=== PATIENT | male | born 1930 | race Caucasian/White ===

== ENCOUNTER 2017-09-07 18:15 | Inpatient (IN) | payer OTHER, MEDICARE ==
[~2017-09-07] VITALS: Ht 167.6 cm; Wt 82.9 kg
[2017-09-07 18:31] VITALS: BP 113/77; PULSE 114; RESP 18; TEMP 98.3; O2SAT 96
[2017-09-07] MEDS ORDERED: SODIUM CHLORIDE 0.9% FLUSH 10 ML FLUSH IVF PRN (18:45)
[2017-09-07] MEDS ORDERED: SODIUM CHLORID 0.9% 500 ML INJ 500 ML IV ONE (18:45)
[2017-09-07] MEDS ORDERED: DILTIAZEM HCL 25 MG/5 ML VIAL IV ONE (18:45)
[2017-09-07] MEDS ORDERED: ASPIRIN 81 MG CHEW TAB PO ONE (18:45)
--- NOTE | 2017-09-07 18:49 | PD ---
HPI Chief Complaint: Cardiac Complaint Time Seen by Provider: 18:36 Travel History International Travel<30 days: No Contact w/Intl Traveler<30days: No Traveled to known affect area: No History of Present Illness HPI 86-year-old male with history of atrial fibrillation on Coumadin,angina, [place], HTN , Cardiomyopathy, presents emergency department from his primary care physician' s office for a rapid heart rate that was found on EKG today. Patient says that he had an episode of angina this morning where he took 4 nitro tablets and this resolved his pain. Patient states his pain was located in the epigastric region and felt "shaky". Pain did not radiate, denies nausea or vomiting. Had associated shortness of breath, worsened with ambulation. Currently patient denies chest pain, abdominal pain, back pain. States he is short of breath but believes this is secondary to his chronic COPD. According to [facility] initial heart rate was in the 180s-190s in the administered 20 mg Cardizem without improvement in heart rate. They then administered amiodarone 150 mg with a heart rate slowed to approximately 110-120 bpm. His stars coordinator is Dr. Rivera and his last follow-up several months ago. PFSH Past Medical History Atrial Fibrillation: Yes COPD: Yes Diabetes: No Hypertension: Yes Triglycerides - High: Yes ?: Not Social History Alcohol Use: No Tobacco Use: Yes (on occasion) Substance Use: No Allergies-Medications (Allergen,Severity, Reaction): Coded Allergies: No Known Allergies (Unverified , 09/07/17) Reported Meds & Prescriptions Reported Meds & Active Scripts Active Reported Ventolin Hfa 18 GM Inh (Albuterol Sulfate) 90 Mcg/Act Aer 1 Puff INH Q4H PRN Zantac (Ranitidine HCl) 150 Mg Tab 150 Mg PO DAILY Zolpidem (Zolpidem Tartrate) 10 Mg Tab 10 Mg PO HS PRN Atorvastatin (Atorvastatin Calcium) 40 Mg Tab 40 Mg PO HS Doxazosin (Doxazosin Mesylate) 2 Mg Tab 2 Mg PO DAILY Warfarin 2.5 Mg Tab 2.5 Mg PO DAILY Lisinopril 20 Mg Tab 20 Mg PO DAILY Metoprolol Tartrate 25 Mg Tab 25 Mg PO BID Amiodarone (Amiodarone HCl) 100 Mg Tab 100 Mg PO BID Review of Systems Except as stated in HPI: all other systems reviewed are Neg Physical Exam Narrative GENERAL: Well-developed, well-nourished in no apparent distress SKIN: Focused skin assessment warm/dry. HEAD: Atraumatic. Normocephalic. EYES: Pupils equal and round. No scleral icterus. No injection or drainage. ENT: No nasal bleeding or discharge. Mucous membranes pink and moist. NECK: Trachea midline. No JVD. CARDIOVASCULAR: rapid irregular irregular. No murmur appreciated. RESPIRATORY: No accessory muscle use. Clear to auscultation. Breath sounds equal bilaterally. GASTROINTESTINAL: Abdomen soft, non-tender, nondistended. Hepatic and splenic margins not palpable. MUSCULOSKELETAL: No obvious deformities. No clubbing. No cyanosis. No edema. NEUROLOGICAL: Awake and alert. No obvious cranial nerve deficits. Motor grossly within normal limits. Normal speech. PSYCHIATRIC: Appropriate mood and affect; insight and judgment normal. Data Data Last Documented VS Vital Signs Date Time Temp Pulse Resp B/P (MAP) Pulse Ox O2 Delivery O2 Flow Rate FiO2 09/07/17 19:22 121 116/60 09/07/17 19:00 18 97 Room Air 09/07/17 18:31 98.3 Orders Orders B-Type Natriuretic Peptide (09/07/17 18:37) Ckmb (Isoenzyme) Profile (09/07/17 18:37) Complete Blood Count With Diff (09/07/17 18:37) Comprehensive Metabolic Panel (09/07/17 18:37) Magnesium (Mg) (09/07/17 18:37) Prothrombin Time / Inr (Pt) (09/07/17 18:37) Act Partial Throm Time (Ptt) (09/07/17 18:37) Troponin I (09/07/17 18:37) Lipase (09/07/17 18:37) Chest, Single Ap (09/07/17 18:37) Aspirin Chew (Aspirin Chew) (09/07/17 18:45) Sodium Chlorid 0.9% 500 Ml Inj (Ns 500 M (09/07/17 18:45) Iv Access Insert/Monitor (09/07/17 18:37) Ecg Monitoring (09/07/17 18:37) Oximetry (09/07/17 18:37) Oxygen Administration (09/07/17 18:37) Sodium Chloride 0.9% Flush (Ns Flush) (09/07/17 18:45) Vital Signs (Adult) Q15MX4,Q4H (09/07/17 18:40) Notify Dr: Other (09/07/17 18:40) Diltiazem Inj (Cardizem Inj) (09/07/17 18:45) Diltiazem Inj (Cardizem Inj) (09/07/17 19:00) Sodium Chlor 0.9% 250 Ml Inj (Ns 250 Ml (09/07/17 20:15) Admit To Inpatient (09/07/17 ) Vital Signs (Adult) Q4H (09/07/17 20:02) Activity Oob With Assistance (09/07/17 20:02) Center Human Resources Manager / Telemetry .CONTINUOUS (09/07/17 20:02) Sodium Chloride 0.9% Flush (Ns Flush) (09/07/17 20:15) Sodium Chloride 0.9% Flush (Ns Flush) (09/07/17 21:00) Basic Metabolic Panel (Bmp) (09/08/17 06:00) Complete Blood Count With Diff (09/08/17 06:00) Troponin I (09/08/17 00:40) Troponin I (09/08/17 06:40) Electrocardiogram (09/08/17 00:40) Electrocardiogram (09/08/17 06:40) Pt Request For Service (09/07/17 20:02) Case Management Consult (09/07/17 20:02) Naloxone Inj (Narcan Inj) (09/07/17 20:15) Inpatient Certification (09/07/17 ) Consult Cardiology (09/07/17 ) Admit Order (Ed Use Only) (09/07/17 20:05) Thyroid Stimulating Hormone (09/07/17 18:43) Labs Laboratory Tests Test 3 18:43 White Blood Count 11.8 TH/MM3 Red Blood Count 4.90 MIL/MM3 Hemoglobin 14.6 GM/DL Hematocrit 42.3 % Mean Corpuscular Volume 86.3 FL Mean Corpuscular Hemoglobin 29.7 PG Mean Corpuscular Hemoglobin Concent 34.4 % Red Cell Distribution Width 14.9 % Platelet Count 193 TH/MM3 Mean Platelet Volume 8.8 FL Neutrophils (%) (Auto) 78.3 % Lymphocytes (%) (Auto) 11.2 % Monocytes (%) (Auto) 9.7 % Eosinophils (%) (Auto) 0.4 % Basophils (%) (Auto) 0.4 % Neutrophils # (Auto) 9.2 TH/MM3 Lymphocytes # (Auto) 1.3 TH/MM3 Monocytes # (Auto) 1.1 TH/MM3 Eosinophils # (Auto) 0.1 TH/MM3 Basophils # (Auto) 0.1 TH/MM3 CBC Comment DIFF FINAL Differential Comment Prothrombin Time 24.6 SEC Prothromb Time International Ratio 2.4 RATIO Activated Partial Thromboplast Time 31.7 SEC Blood Urea Nitrogen 29 MG/DL Creatinine 1.25 MG/DL Random Glucose 109 MG/DL Total Protein 6.3 GM/DL Albumin 3.3 GM/DL Calcium Level 8.1 MG/DL Magnesium Level 1.7 MG/DL Alkaline Phosphatase 68 U/L Aspartate Amino Transf (AST/SGOT) 15 U/L Alanine Aminotransferase (ALT/SGPT) 18 U/L Total Bilirubin 0.7 MG/DL Sodium Level 138 MEQ/L Potassium Level 4.0 MEQ/L Chloride Level 104 MEQ/L Carbon Dioxide Level 25.0 MEQ/L Anion Gap 9 MEQ/L Estimat Glomerular Filtration Rate 55 ML/MIN Total Creatine Kinase 73 U/L Troponin I 0.82 NG/ML B-Type Natriuretic Peptide 219 PG/ML Lipase 162 U/L Thyroid Stimulating Hormone 3rd Gen 2.410 uIU/ML MDM Medical Decision Making Medical Screen Exam Complete: Yes Emergency Medical Condition: Yes Differential Diagnosis NSTEMI, unstable angina, angina Narrative Course 86-year-old male with history of atrial fibrillation on Coumadin,angina, [place], HTN , Cardiomyopathy, presents emergency department from his primary care physician' s office for a rapid heart rate that was found on EKG today. Patient says that he had an episode of angina this morning where he took 4 nitro tablets and this resolved his pain. Patient states his pain was located in the epigastric region and felt "shaky". Pain did not radiate, denies nausea or vomiting. Had associated shortness of breath worsened with ambulation. Currently patient denies chest pain, abdominal pain, back pain. States he is short of breath but believes this is secondary to his chronic COPD. According to [facility] initial heart rate was in the 180s-190s in the administered 20 mg cardiac Cardizem without improvement in heart rate. Again administered amiodarone 550 mg with a heart rate slowed to approximately 110-1 20 bpm. His stars coordinator is Dr. Rivera and his last follow-up several months ago. Vital signs-heart rate low 100s-145, irregularly irregular. EKG shows atrial fibrillation with RVR Physical exam findings demonstrate 86-year-old male well-developed, well- nourished in no apparent distress. Labs and imaging studies ordered. Last Impressions Chest X-Ray 09/07/17 1837 Signed Impressions: Service Date/Time: Thursday, September 07, 2017 18:43 - CONCLUSION: No evidence of acute cardiopulmonary disease. Juan Francis MD Labs are significant for troponin 0.82, BNP 219, BUN/creatinine 29/1.25, INR 2.4 (therapeutic level), H&H 14.6/42.3. Because of patient's episode of midepigastric pain associated with shortness of breath this morning, I am concerned about an NSTEMI. I spoke with Dr. Benitez, stars coordinator utility bill collection clerk and he recommended a heparin drip but no heparin bolus. States that although his blood pressure is 99/66 that he should remain on Cardizem for rate control. 250 cc normal saline bolus administered. Will monitor BP and HR. Pt will be admitted to Dr. Connolly. Physician Communication Physician Communication I spoke with Dr. Benitez, stars coordinator utility bill collection clerk and he recommended a heparin drip but no heparin bolus. Diagnosis Primary Impression: NSTEMI (non-ST elevated myocardial infarction) Additional Impression: Atrial fibrillation with RVR Admitting Information Admitting Physician Requests: Admit Condition: Stable Salma Hutchison Sep 07, 2017 18:49
[2017-09-07 18:55] LABS: AUTOMATED NEUTROPHIL # 9.2 TH/MM3 (1.8-7.7); BASOPHIL # 0.1 TH/MM3 (0-0.2); BASOPHIL % 0.4 % (0.0-2.0); EOSINOPHIL # 0.1 TH/MM3 (0-0.4); EOSINOPHIL % 0.4 % (0.0-4.0); HEMATOCRIT 42.3 % (39.0-51.0); HEMOGLOBIN 14.6 GM/DL (13.0-17.0); LYMPH % 11.2 % (9.0-44.0); LYMPHOCYTE # 1.3 TH/MM3 (1.0-4.8); MEAN CELL VOLUME 86.3 FL (80.0-100.0); MEAN CORPUSCULAR HEMOGLOBIN 29.7 PG (27.0-34.0); MEAN CORPUSCULAR HGB CONC 34.4 % (32.0-36.0); MEAN PLATELET VOLUME 8.8 FL (7.0-11.0); MONO % 9.7 % (0.0-8.0); MONOCYTE # 1.1 TH/MM3 (0-0.9); NEUT % 78.3 % (16.0-70.0); PLATELET COUNT 193 TH/MM3 (150-450); RED CELL DISTRIBUTION WIDTH 14.9 % (11.6-17.2); WHITE BLOOD COUNT 11.8 TH/MM3 (4.0-11.0)
--- NOTE | 2017-09-07 18:59 | RADRPT ---
EXAM DATE/TIME: 09/07/2017 18:43 [facility] COMPARISON: No previous studies available for comparison. INDICATIONS : Chest pain MEDICAL HISTORY : None. SURGICAL HISTORY : None. ENCOUNTER: Initial ACUITY: 1 day PAIN SCORE: 0/10 LOCATION: chest FINDINGS: A single view of the chest demonstrates the lungs to be symmetrically aerated without evidence of mas s, infiltrate or effusion. The cardiomediastinal contours are unremarkable. Osseous structures are intact. CONCLUSION: No evidence of acute cardiopulmonary disease. Juan Francis MD on September 07, 2017 at 18:57 Board Certified Radiologist. This report was verified electronically.
[2017-09-07 19:00] VITALS: BP 105/74; PULSE 128; RESP 18; O2SAT 97
[2017-09-07] MEDS ORDERED: DILTIAZEM HCL 50 MG/10 ML VIAL IV ONE (19:00)
[2017-09-07 19:11] LABS: INTERNATIONAL NORMALIZED RATIO 2.4 RATIO; PROTHROMBIN TIME - PATIENT 24.6 SEC (9.8-11.6)
[2017-09-07 19:22] LABS: ALBUMIN 3.3 GM/DL (3.4-5.0); AST (GOT) 15 U/L (15-37); BLOOD UREA NITROGEN 29 MG/DL (7-18); CALCIUM 8.1 MG/DL (8.5-10.1); CHLORIDE 104 MEQ/L (98-107); CREATININE 1.25 MG/DL (0.60-1.30); GLOMERULAR FILTRATION RATE 55 ML/MIN (>89); GLUCOSE,RANDOM 109 MG/DL (74-106); MAGNESIUM 1.7 MG/DL (1.5-2.5); SODIUM (NA) 138 MEQ/L (136-145)
[2017-09-07] MEDS: DILTIAZEM INJ 125 MG in SODIUM CHLORIDE 0.9% INJ 100 ML IV PRN (19:22)
[2017-09-07 19:27] LABS: ALKALINE PHOSPHATASE 68 U/L (45-117); ALT (GPT) 18 U/L (12-78); TOTAL BILIRUBIN ADULT 0.7 MG/DL (0.2-1.0); TOTAL PROTEIN 6.3 GM/DL (6.4-8.2)
[2017-09-07 19:29] LABS: TROPONIN I 0.82 NG/ML (0.02-0.05)
[2017-09-07] MEDS ORDERED: SODIUM CHLORIDE 0.9% FLUSH 10 ML FLUSH IV FLUSH PRN (20:15)
[2017-09-07] MEDS ORDERED: SODIUM CHLOR 0.9% 250 ML INJ 250 ML IV ONE (20:15)
[2017-09-07] MEDS ORDERED: NALOXONE HCL 0.4 MG/ML AMP IV PUSH PRN (20:15)
[2017-09-07] MEDS: SODIUM CHLORIDE 0.9% FLUSH 10 ML FLUSH IV FLUSH SCH (20:57)
[2017-09-07 21:00] VITALS: BP 96/63; PULSE 120; RESP 18; O2SAT 96
[2017-09-07] MEDS ORDERED: DOXA1TAB35 PO (21:22)
[2017-09-07] MEDS ORDERED: ATOR40TA16 PO (21:22)
[2017-09-07] MEDS ORDERED: METO25TA3 PO (21:22)
[2017-09-07] MEDS ORDERED: CEFU1TAB20 PO (21:22)
[2017-09-07] MEDS ORDERED: AMIO0.1T PO (21:22)
[2017-09-07] MEDS ORDERED: ZOLP10TA3 PO (21:22)
[2017-09-07] MEDS ORDERED: ZANT150T2 PO (21:22)
[2017-09-07] MEDS ORDERED: LISI-515 PO (21:22)
[2017-09-07] MEDS ORDERED: PRED10 PO (21:22)
[2017-09-07] MEDS ORDERED: VENTAER INH (21:22)
[2017-09-07] MEDS ORDERED: WARF-18 PO (21:22)
[2017-09-07 23:00] VITALS: BP 90/64; PULSE 122; RESP 18; O2SAT 96
[2017-09-08] VITALS (11 sets, daily range): BP systolic 90–111; BP diastolic 59–81; PULSE 103–128; RESP 17–20; TEMP 98–98.6; O2SAT 93–97
--- NOTE | 2017-09-08 02:01 | HHI.HP ---
[facility] Unknown Admission Diagnosis NSTEMI Diagnoses: Travel History International Travel<30 Days: No Contact w/Intl Traveler <30 Da: No Traveled to Known Affected Are: No History of Present Illness History from patient, ER PA communication, interview of medical records. Patient reported that he had chest pain earlier this morning. He was also sweating at top of his head when the pain came. He felt shaky inside. He then had pain in his diaphragm. He reports for all this, he took nitroglycerin sublingual 4 at home and finally the fourth wanted his pain away. He reports history of angina attacks previously and this was the reason why he took nitroglycerin. He then went to PCP office. PCP was actually seen his for an appointment. Over there, he complained of his morning episode for which they obtained an EKG. On the EKG, patient was found to have atrial fibrillation with heart rate in the 120s to 130s. Therefore he was sent to hospital. Review of system, patient reports that he had had 3 attacks of bronchitis this year and one of them being pneumonia. He was just on antibiotics and prednisone. On his medications list that came with him, he was on cefuroxime. He reports his cough is still there and his phlegm now is mostly milky color rather than yellow. He finished his antibiotics a week ago. This is his second round of antibiotics. He also states that he was just recently started on water pills about 3 weeks ago. With potassium supplements. He reported this was started because of leg swelling. Apart from the above, patient denies any other symptoms. Review of Systems Except as stated in HPI: all other systems reviewed are Neg Past Family Social History Past Medical History afib chronic anticoagulation on coumadin baseline low BP stated one of his meds had to stop because of this cad- [place] in 1999; s/p angioplasty - about 3-4 yrs ago- Dr Rivera cardiomyopathy - per notes that comes with pt, though pt denies it- with recent start of lasix copd - Dr Hester ckd stage III melanoma of chest prostate cancer, s/p radiation treatment- 6 yrs ago or so Past Surgical History ear sx nose sx coronary angiogram melanoma resection hernia sx another hernia sx Allergies: Coded Allergies: No Known Allergies (Unverified , 09/07/17) Physical Exam Vital Signs Vital Signs Date Time Temp Pulse Resp B/P (MAP) Pulse Ox O2 Delivery O2 Flow Rate FiO2 09/07/17 19:22 121 116/60 09/07/17 18:35 137 18 96 Room Air 09/07/17 18:31 98.3 114 18 113/77 (89) 96 Room Air Physical Exam GENERAL: This is a well-nourished, well-developed patient, in no apparent distress. SKIN: No rashes, ecchymoses or lesions. Cool and dry. HEAD: Atraumatic. Normocephalic. No temporal or scalp tenderness. EYES: Pupils equal round and reactive. Extraocular motions intact. No scleral icterus. No injection or drainage. ENT: Nose without bleeding, purulent drainage or septal hematoma. Throat without erythema, tonsillar hypertrophy or exudate. Uvula midline. Airway patent. NECK: Trachea midline. No JVD or lymphadenopathy. Supple, nontender, no meningeal signs. CARDIOVASCULAR: Regular rate and rhythm without murmurs, gallops, or rubs. RESPIRATORY: Clear to auscultation. Breath sounds equal bilaterally. No wheezes , rales, or rhonchi. GASTROINTESTINAL: Abdomen soft, non-tender, nondistended. No hepato-splenomegaly , or palpable masses. No guarding. MUSCULOSKELETAL: Extremities without clubbing, cyanosis, or edema. No joint tenderness, effusion, or edema noted. No calf tenderness. Negative Homans sign bilaterally. NEUROLOGICAL: Awake and alert. Cranial nerves II through XII intact. Motor and sensory grossly within normal limits. Five out of 5 muscle strength in all muscle groups. Normal speech. Laboratory Laboratory Tests Test 09/07/17 18:43 White Blood Count 11.8 Red Blood Count 4.90 Hemoglobin 14.6 Hematocrit 42.3 Mean Corpuscular Volume 86.3 Mean Corpuscular Hemoglobin 29.7 Mean Corpuscular Hemoglobin Concent 34.4 Red Cell Distribution Width 14.9 Platelet Count 193 Mean Platelet Volume 8.8 Neutrophils (%) (Auto) 78.3 Lymphocytes (%) (Auto) 11.2 Monocytes (%) (Auto) 9.7 Eosinophils (%) (Auto) 0.4 Basophils (%) (Auto) 0.4 Neutrophils # (Auto) 9.2 Lymphocytes # (Auto) 1.3 Monocytes # (Auto) 1.1 Eosinophils # (Auto) 0.1 Basophils # (Auto) 0.1 CBC Comment DIFF FINAL Differential Comment Prothrombin Time 24.6 Prothromb Time International Ratio 2.4 Activated Partial Thromboplast Time 31.7 Blood Urea Nitrogen 29 Creatinine 1.25 Random Glucose 109 Total Protein 6.3 Albumin 3.3 Calcium Level 8.1 Magnesium Level 1.7 Alkaline Phosphatase 68 Aspartate Amino Transf (AST/SGOT) 15 Alanine Aminotransferase (ALT/SGPT) 18 Total Bilirubin 0.7 Sodium Level 138 Potassium Level 4.0 Chloride Level 104 Carbon Dioxide Level 25.0 Anion Gap 9 Estimat Glomerular Filtration Rate 55 Total Creatine Kinase 73 Troponin I 0.82 B-Type Natriuretic Peptide 219 Lipase 162 Thyroid Stimulating Hormone 3rd Gen 2.410 Result Diagram: 09/07/173 09/07/17 1843 Caprini VTE Risk Assessment Caprini Risk Assessment Model Point Value = 1 Point Value = 2 Point Value = 3 Point Value = 5 Age 41-60 Minor surgery BMI > 25 kg/m2 Swollen legs Varicose veins or History of unexplained or recurrent spontaneous Oral contraceptives or hormone replacement Sepsis (< 1 month) Serious lung disease, including pneumonia (< 1 month) Abnormal pulmonary function Acute myocardial infarction Congestive heart failure (< 1 month) History of inflammatory bowel disease Medical patient at bed rest Age 61-74 Arthroscopic surgery Major open surgery (> 45 min) Laparoscopic surgery (> 45 min) Malignancy Confined to bed (> 72 hours) Immobilizing plaster cast Central venous access Age >= 75 History of VTE Family history of VTE Factor V Leiden Prothrombin [id number] Lupus anticoagulant Anticardiolipin antibodies Elevated serum homocysteine Heparin-induced thrombocytopenia Other congenital or acquired thrombophilia Stroke (< 1 month) Elective arthroplasty Hip, pelvis, or leg fracture Acute spinal cord injury (< 1 month) Prophylaxis Regimen Total Risk Factor Score Risk Level Prophylaxis Regimen 0-1 Low Early ambulation 2 Moderate Order ONE of the following: *Sequential Compression Device (SCD) *Heparin 5000 units SQ BID 3-4 Higher Order ONE of the following medications: *Heparin 5000 units SQ TID *Enoxaparin/Lovenox 40 mg SQ daily (WT < 150 kg, CrCl > 30 mL/min) *Enoxaparin/Lovenox 30 mg SQ daily (WT < 150 kg, CrCl > 10-29 mL/min) *Enoxaparin/Lovenox 30 mg SQ BID (WT < 150 kg, CrCl > 30 mL/min) AND/OR *Sequential Compression Device (SCD) 5 or more Highest Order ONE of the following medications: *Heparin 5000 units SQ TID (Preferred with Epidurals) *Enoxaparin/Lovenox 40 mg SQ daily (WT < 150 kg, CrCl > 30 mL/min) *Enoxaparin/Lovenox 30 mg SQ daily (WT < 150 kg, CrCl > 10-29 mL/min) *Enoxaparin/Lovenox 30 mg SQ BID (WT < 150 kg, CrCl > 30 mL/min) AND *Sequential Compression Device (SCD) Assessment and Plan Assessment and Plan afib with rvr elevated troponin- possible nstemi report of "angina" but with pain more 'at diaphragm' early pneumonia- suspects this is the main culprit causing his afib with RVR and rate related ischemia leukocytosis with left shift- due to acute infection / also with recent prednisone use received 750cc fluids in er give additional 500cc bolus now levofloxacin 500mg po q24hrs ct chest to further eval sputum cx blood cx ua urine cx start on heparin drip without bolus for anticoagulaton hold coumadin serial enzymes and ekgs cardiology consulted resume home meds i was later informed by pt's nurse that pt was using efrin nasal sprays quite frequently at home more often than prescribed likely culprit for afib with rvr Physician Certification Order for Inpatient Services The services are ordered in accordance with Medicare regulations or non- Medicare payer requirements, as applicable. In the case of services not specified as inpatient-only, they are appropriately provided as inpatient services in accordance with the 2-midnight benchmark. days is the estimated time the patient will need to remain in the hospital, assuming treatment plan goals are met and no additional complications. Delores Connolly MD Sep 08, 2017 02:01
[2017-09-08] MEDS ORDERED: SODIUM CHLORID 0.9% 500 ML INJ 500 ML IV ONE (02:30)
--- NOTE | 2017-09-08 02:39 | RADRPT ---
EXAM DATE/TIME: 09/08/2017 02:24 [facility] COMPARISON: No previous studies available for comparison. INDICATIONS : Chest pain. Possible pneumonia. RADIATION DOSE: 7.15 CTDIvol (mGy) MEDICAL HISTORY : Cardiovascular disease. Hypertension. Carcinoma, prostate. COPD Melanoma SURGICAL HISTORY : None. ENCOUNTER: Initial ACUITY: 1 day PAIN SCALE: 2/10 LOCATION: chest TECHNIQUE: Volumetric scanning of the chest was performed. Using automated exposure control and adjustment of t he mA and/or kV according to patient size, radiation dose was kept as low as reasonably achievable to obtain optimal diagnostic quality images. DICOM format image data is available electronically for r eview and comparison. Follow-up recommendations for detected pulmonary nodules are based at a minimum on nodule size and pa tient risk factors according to Fleischner Society Guidelines. FINDINGS: LUNGS: There is no consolidation or pneumothorax. No concerning pulmonary nodule is visualized. PLEURAE: There is no pleural thickening or pleural effusion. MEDIASTINUM: Heart is at the upper limits of normal in terms of size. No pericardial effusion. Severe coronary art amber atherosclerotic calcifications. Aortic atherosclerotic calcifications also noted. Pulmonary arter ies are normal in caliber. No mass or adenopathy. Small hiatal hernia. AXILLAE: Within normal limits. No lymphadenopathy. MUSCULOSKELETAL: Within normal limits for patient age. MISCELLANEOUS: Multiple low-density lesions are seen scattered throughout the liver. The largest measures 1.6 cm and is posterior within the right lobe. CONCLUSION: 1. No acute intrathoracic abnormality. 2. Severe coronary artery atherosclerotic calcifications. 3. Multiple low-density lesions involving the liver which are poorly characterized on this unenhanced study. Ultrasound of the liver could be performed to further evaluate. 4. Hiatal hernia. Molina Viramontes Jr., MD on September 08, 2017 at 2:35 Board Certified Radiologist. This report was verified electronically.
[2017-09-08] MEDS: LEVOFLOXACIN 500 MG TAB PO SCH (02:52)
[2017-09-08] MEDS: HEPARIN-D5W 25,000 U/250 ML 250 ML IV PRN (02:54)
[2017-09-08] MEDS: ZOLPIDEM TARTRATE 10 MG TAB PO PRN ×3 (02:55→21:49)
[2017-09-08] MEDS: SODIUM CHLOR 0.9% 1000 ML INJ 1,000 ML IV SCH ×2 (06:00→16:00)
[2017-09-08 07:29] LABS: AUTOMATED NEUTROPHIL # 9.5 TH/MM3 (1.8-7.7); BASOPHIL % 0.3 % (0.0-2.0); EOSINOPHIL # 0.1 TH/MM3 (0-0.4); EOSINOPHIL % 0.7 % (0.0-4.0); HEMATOCRIT 37.9 % (39.0-51.0); HEMOGLOBIN 13.2 GM/DL (13.0-17.0); LYMPH % 10.2 % (9.0-44.0); LYMPHOCYTE # 1.2 TH/MM3 (1.0-4.8); MEAN CELL VOLUME 86.7 FL (80.0-100.0); MEAN CORPUSCULAR HEMOGLOBIN 30.3 PG (27.0-34.0); MEAN CORPUSCULAR HGB CONC 34.9 % (32.0-36.0); MONO % 9.7 % (0.0-8.0); MONOCYTE # 1.2 TH/MM3 (0-0.9); NEUT % 79.1 % (16.0-70.0); PLATELET COUNT 181 TH/MM3 (150-450); RED BLOOD COUNT 4.37 MIL/MM3 (4.50-5.90); RED CELL DISTRIBUTION WIDTH 14.6 % (11.6-17.2); WHITE BLOOD COUNT 12.1 TH/MM3 (4.0-11.0)
[2017-09-08] MEDS: AMIODARONE 200 MG TAB PO SCH ×2 (07:54→20:33)
[2017-09-08] MEDS: METOPROLOL TARTRATE 25 MG TAB PO SCH ×3 (07:55→23:57)
[2017-09-08] MEDS: FAMOTIDINE 20 MG TAB PO SCH (07:55)
[2017-09-08] MEDS: LISINOPRIL 20 MG TAB PO SCH (07:57)
[2017-09-08] MEDS: SODIUM CHLORIDE 0.9% FLUSH 10 ML FLUSH IV FLUSH SCH ×2 (07:57→20:33)
[2017-09-08 08:06] LABS: BICARBONATE 26.7 MEQ/L (21.0-32.0); CALCIUM 7.6 MG/DL (8.5-10.1); CREATININE 0.91 MG/DL (0.60-1.30)
[2017-09-08 08:29] LABS: TROPONIN I 0.78 NG/ML (0.02-0.05)
[2017-09-08 08:45] LABS: BACTERIA, URINE RARE /hpf; BILIRUBIN, URINE NEG (NEG); BLOOD, URINE SMALL (NEG); GLUCOSE,URINE NEG (NEG); KETONE, URINE 80 mg/dL (NEG); MUCUS URINE FEW /lpf (OCC); NITRITE,URINE NEG (NEG); PH, URINE 6.5 (5.0-8.5); SQUAMOUS EPITHELIAL CELL URINE 1 /hpf (0-5); URINE COLOR YELLOW (YELLW/STRAW); URINE LEUKOCYTE ESTERASE TRACE (NEG)
[2017-09-08] MEDS: DOXAZOSIN MESYLATE 2 MG TAB PO SCH (09:00)
--- NOTE | 2017-09-08 09:21 | RADRPT ---
EXAM DATE/TIME: 09/08/2017 07:51 [facility] COMPARISON: CT THORAX W/O CONTRAST, September 08, 2017, 2:24. INDICATIONS : Liver lesions. MEDICAL HISTORY : Afib. Hypertension. COPD. SURGICAL HISTORY : None. ENCOUNTER: Initial ACUITY: 1 day PAIN SCORE: 0/10 LOCATION: Bilateral upper quadrant MEASUREMENTS: LIVER: 11.5 cm length COMMON DUCT: 7 mm RIGHT KIDNEY: 9.2 x 4.7 x 5.0 cm SPLEEN: 10.3 cm length FINDINGS: LIVER: There are multiple simple appearing hypoechoic cystic lesions in the liver which correspon d to abnormality noted on CT exam. The largest measures 1.9 x 1.3 x 1.2 cm and the left lobe. There a re several lesions are too small to fully characterize. Liver is otherwise unremarkable without evide nce for intrahepatic ductal dilatation or volume loss. COMMON DUCT: No intraluminal mass or stone visualized. GALLBLADDER: Contains no stones, demonstrates no wall thickening or pericholecystic fluid. PANCREAS: The visualized portions are within normal limits. RIGHT KIDNEY: No hydronephrosis, stone or mass. SPLEEN: No focal lesion. CONCLUSION: 1. Majority of the lesions noted on recent CT exam correspond to hepatic cysts on ultrasound. However , several lesions are too small to fully characterize. Porter Huerta MD on September 08, 2017 at 9:02 Board Certified Radiologist. This report was verified electronically.
--- NOTE | 2017-09-08 15:54 | HHI.FPPN ---
Addendum to progress note ADDENDUM Reason for addendum: Additonal documentation Additional information Patient seen, lying in bed, no acute distress, having no chest pain. Heart rate varying between the low 100s-110s. anticipate cath in next 24 hrs. Constantin Fernandez MD Sep 08, 2017 15:54
--- NOTE | 2017-09-08 19:13 | EKG ---
Date Performed: 09/08/2017 Time Performed: 08:23:00 PTAGE: 86 years EKG: ATRIAL FIBRILLATION WITH RAPID VENTRICULAR RESPONSE RIGHT BUNDLE BRANCH BLOCK LEFT ANTERIOR FASCICULAR BLOCK ABNORMAL ECG PREVIOUS TRACING : 09/08/2017 02.41 Since the previous tracing, no significant change noted DOCTOR: Nate Adkins Interpretating Date/Time 09/08/2017 19:12:54
--- NOTE | 2017-09-08 19:25 | EKG ---
Date Performed: 09/08/2017 Time Performed: 02:41:49 PTAGE: 86 years EKG: ATRIAL FIBRILLATION WITH RAPID VENTRICULAR RESPONSE RIGHT BUNDLE BRANCH BLOCK LEFT ANTERIOR FASCICULAR BLOCK PREVIOUS TRACING : 09/07/2017 18.28 Since the previous tracing, no significant change not ed DOCTOR: Nate Adkins Interpretating Date/Time 09/08/2017 19:25:02
--- NOTE | 2017-09-08 20:05 | EKG ---
Date Performed: 09/07/2017 Time Performed: 18:28:18 PTAGE: 86 years EKG: ATRIAL FIBRILLATION WITH RAPID VENTRICULAR RESPONSE RIGHT BUNDLE BRANCH BLOCK LEFT ANTERIOR FASCICULAR BLOCK ABNORMAL ECG NO PREVIOUS TRACING DOCTOR: Nate Adkins Interpretating Date/Time 09/08/2017 20:04:44
[2017-09-08] MEDS: ATORVASTATIN 40 MG TAB PO SCH (20:32)
[2017-09-09] VITALS (11 sets, daily range): BP systolic 88–133; BP diastolic 57–77; PULSE 85–142; RESP 17–22; TEMP 97.5–98.6; O2SAT 93–99
[2017-09-09] MEDS: DILTIAZEM INJ 125 MG in SODIUM CHLORIDE 0.9% INJ 100 ML IV PRN (00:26)
[2017-09-09] MEDS: SODIUM CHLOR 0.9% 1000 ML INJ 1,000 ML IV SCH ×3 (02:11→21:04)
[2017-09-09] MEDS: LEVOFLOXACIN 500 MG TAB PO SCH (02:11)
[2017-09-09] MEDS: METOPROLOL TARTRATE 25 MG TAB PO SCH ×3 (05:19→17:24)
[2017-09-09] MEDS: HEPARIN-D5W 25,000 U/250 ML 250 ML IV PRN (05:22)
[2017-09-09] MEDS: SODIUM CHLORIDE 0.9% FLUSH 10 ML FLUSH IV FLUSH SCH ×2 (09:00→21:04)
[2017-09-09] MEDS: RESP: ALBUTEROL 2.5 MG/IPRATROPIUM 0.5 MG NEB (PRN) NEB (09:28)
[2017-09-09] MEDS ORDERED: PNEUMOCOCCAL POLYVALENT INJ 25 MCG/0.5 ML SYR IM ONE (10:00)
[2017-09-09] MEDS: FAMOTIDINE 20 MG TAB PO SCH (10:05)
[2017-09-09] MEDS: DOXAZOSIN MESYLATE 2 MG TAB PO SCH (10:05)
[2017-09-09] MEDS: LISINOPRIL 20 MG TAB PO SCH (10:05)
[2017-09-09] MEDS: AMIODARONE 200 MG TAB PO SCH ×2 (10:05→21:04)
--- NOTE | 2017-09-09 11:41 | MB ---
cc: Jose Sol DO DATE OF CONSULT: 09/08/2017 REASON FOR CONSULTATION: NSTEMI, atrial fibrillation. HISTORY OF PRESENT ILLNESS: Simón Cardenas is a pleasant 86-year-old male who sees my partner, Dr. Rivera, in the office and presented to [facility] on 09/07/2017 due to chest ____ as well as atrial fibrillation with rapid ventricular response. The patient woke up in the morning and was having chest pain as well as he felt shaky inside. He could feel that his heart was racing. The pain was in the lower part of his chest along his diaphragm. He felt slightly diaphoretic. He took 4 sublinguals at home and the pain started to go away. He went to the primary care physician office, as his had an appointment there. Because of his complaints, they did an EKG and he was found to have atrial fibrillation with a rapid ventricular response of around 130 beats per minute, and he was sent to the hospital. According to [facility], heart rates were up to 180 or so and he was administered 20 mg of IV Cardizem, which improved heart rates, and then he was given amiodarone 150 mg, which brought his heart rate down to around 100. After his heart rate was down to around 100, he felt much better. PAST MEDICAL HISTORY: 1. Paroxysmal atrial fibrillation. 2. Coronary artery disease with a history of myocardial infarction. 3. Cardiomyopathy. 4. COPD. 5. CKD stage III. 6. Melanoma of the chest. 7. Prostate cancer, status post radiation treatment. PAST SURGICAL HISTORY: 1. Multivessel coronary artery disease (2013) deemed not a candidate for coronary artery bypass grafting for which he underwent balloon angioplasty with an inability to place a stent. 2. Ear surgery. 3. Nose surgery. 4. Melanoma resection. 5. Hernia surgery x 2. ALLERGIES: NO KNOWN DRUG ALLERGIES. MEDICATIONS: 1. Albuterol 1 puff every 4 hours as needed for shortness of breath. 2. Coumadin 2.5 mg daily. 3. Amiodarone 100 mg b.i.d. 4. Lipitor 40 mg every night. 5. Doxazosin 2 mg daily. 6. Metoprolol tartrate 25 mg b.i.d. 7. Lisinopril 20 mg daily. 8. Ambien 10 mg every night as needed for insomnia. 9. Zantac 150 mg daily. FAMILY HISTORY: Denies premature coronary artery disease or sudden cardiac within the family. SOCIAL HISTORY: Denies alcohol, drug or tobacco abuse. REVIEW OF SYSTEMS: Fourteen systems were reviewed, including osteopathic. Pertinent positives and negatives above, otherwise negative. PHYSICAL EXAMINATION: VITAL SIGNS: Temp 98.6, heart rate 103, blood pressure 105/81, respirations 20, pulse ox 96% on room air. GENERAL: The patient appears well, in no acute distress, alert, awake, and oriented x 3. HEENT: Extraocular muscles intact. Mucous membranes moist. NECK: Supple. No JVD at 45 degrees. No carotid bruits heard bilaterally. Carotid upstroke is brisk in nature. HEART: Irregularly irregular and tachycardic; I/ crescendo/decrescendo murmur to the right sternal border. LUNGS: Decreased breath sounds bilaterally, no overt wheezes, rales or rhonchi. ABDOMEN: Soft, nontender, nondistended, no organomegaly noted. EXTREMITIES: No clubbing, cyanosis or edema. Femoral and distal pulses are intact bilaterally. NEUROLOGIC: No focal deficits. SKIN: Warm, dry, and intact. OSTEOPATHIC: No kyphoscoliosis, lordosis or paraspinal tender points. LABORATORY DATA: Hemoglobin 13.2, hematocrit 37.9, platelets 181. Potassium 3.7, BUN 21, creatinine 0.91. Troponin 0.82, decreasing to 0.78. Electrocardiogram (09/08/2017 at 0823): Atrial fibrillation with rapid ventricular response, right bundle branch block, left anterior fascicular block. IMPRESSIONS: 1. Atrial fibrillation with rapid ventricular response, with a history of paroxysmal atrial fibrillation. 2. Coagulopathy secondary to Coumadin therapy. 3. [id number] myocardial infarction, type 1 versus type 2. 4. Possible pneumonia. 5. Coronary artery disease with previous history of multivessel coronary artery disease. 6. Chronic obstructive pulmonary disease. RECOMMENDATIONS: 1. Mr. Cardenas appears to have presented with atrial fibrillation with rapid ventricular response. He has been started on a Cardizem drip, and we will attempt to get his heart rate controlled and then change him over to oral medications. 2. He does have an elevated troponin, and this may be possible type 2 in nature due to his overall elevated heart rates, as he has chest pain when his heart rate was significantly elevated, but since his heart rates have been decreased, he has felt better. He states that before this, he has had no chest pain in the recent past. 3. I discussed with him ischemic evaluation, whether that be a recommendation of cardiac catheterization or even stress testing, and he would like to avoid this at all costs. He states that his previous catheterization in 2013, he felt like it almost killed him. On top of this, he has known multivessel coronary artery disease which included multiple lesions throughout the LAD, 100% occlusion of the left circumflex, and multiple lesions in the RCA. The RCA had balloon angioplasty of one of the lesions, but it does not appear that a stent was placed or that the other lesions were intervened on. 4. Due to the patient's wishes, we will attempt to treat him medically as best as possible. 5. He will continue on Coumadin for his atrial fibrillation. 6. Possible pneumonia will be treated by the primary team. Thank you for allowing me to see Simón Cardenas. If there are any questions, please do not hesitate to call. DO KAUR Armstrong/BUDDY , 11:08 PM , 12:43 AM
[2017-09-09 14:01] LABS: INTERNATIONAL NORMALIZED RATIO 1.8 RATIO; PROTHROMBIN TIME - PATIENT 18.1 SEC (9.8-11.6)
--- NOTE | 2017-09-09 14:23 | HHI.PR ---
Subjective Remarks Nursing reports that they were able to discontinue/wean the patient off the Cardizem drip at night. However he was still getting tachycardic again between 120s and 140s. Drip had been resumed. Patient himself denies any chest pain. Reiterates that he does not want cardiac catheterization. Objective Vital Signs Date Time Temp Pulse Resp B/P (MAP) Pulse Ox O2 Delivery O2 Flow Rate FiO2 09/09/17 12:00 98.6 126 22 102/58 (73) 96 09/09/17 09:34 96 09/09/17 08:30 Nasal Cannula 3.00 09/09/17 08:00 127 09/09/17 08:00 97.5 118 22 133/77 (95) 99 09/09/17 07:00 Room Air 09/09/17 04:12 98.0 85 17 88/61 (70) 94 09/09/17 04:00 96 09/09/17 03:48 Room Air 09/09/17 00:43 98.0 92 17 123/69 (87) 93 09/09/17 00:26 92 123/69 09/09/17 00:00 Room Air 09/09/17 00:00 104 09/08/17 21:05 98.0 114 17 111/71 (84) 93 09/08/17 20:00 107 09/08/17 20:00 Room Air 09/08/17 16:43 111 09/08/17 15:50 98.6 103 20 105/81 (89) 96 09/08/17 15:48 09/08/17 15:28 106 109/67 (81) 09/08/17 14:29 122 115/83 I/O 09/08/17 09/08/17 09/08/17 09/09/17 09/09/17 09/09/17 07:00 15:00 23:00 07:00 15:00 23:00 Intake Total 1250 ml 590 ml 500 ml Balance 1250 ml 590 ml 500 ml Intake Oral 240 ml IV Total 1250 ml 350 ml 500 ml # Voids 2 Result Diagram: 09/08/17 0610 09/08/17 0610 Objective Remarks My exam at this time his heart rate is regular with an irregular rhythm Lungs are clear bilaterally, no murmurs A/P Assessment and Plan afib with rvr -Still not under control, on scheduled metoprolol and amiodarone, restarted Cardizem drip per cardiology -Resuming Coumadin per cardiology for stroke prevention possible nstemi -Medical management with aspirin and statin as well as heparin drip. Awaiting echo report Possible early pneumonia -We will obtain pro calcitonin, if negative, will discontinue antibiotics -Blood cultures are negative 1 day COPD -Continue home albuterol/DuoNeb's home meds Constantin Fernandez MD Sep 09, 2017 14:23
--- NOTE | 2017-09-09 16:42 | PD.CARD.PN ---
Subjective Subjective Remarks Heart rates down to 70-80 overnight so Cardizem drip stopped Back up to around 110 so restarted No chest pain/SOB Objective Medications Current Medications Medications (Trade) Dose Ordered Sig/Verónica Route Start Time Stop Time Status Last Admin (NS Flush) 2 ml UNSCH PRN IV FLUSH 09/07/17 20:15 (NS Flush) 2 ml BID IV FLUSH 09/07/17 21:00 (Narcan Inj) 0.4 mg UNSCH PRN IV PUSH 09/07/17 20:15 Heparin Sodium/ Dextrose 250 ml @ 8 mls/hr TITRATE PRN IV 09/08/17 02:15 09/09/17 05:22 (Cordarone) 100 mg BID PO 09/08/17 09:00 09/09/17 10:05 (Lipitor) 40 mg HS PO 09/08/17 21:00 09/08/17 20:32 (Cardura) 2 mg DAILY PO 09/08/17 09:00 09/09/17 10:05 (Prinivil) 20 mg DAILY PO 09/08/17 09:00 09/09/17 10:05 (Ambien) 10 mg HS PRN PO 09/08/17 02:15 09/08/17 21:49 (Pepcid) 20 mg DAILY PO 09/08/17 09:00 09/09/17 10:05 (Levaquin) 500 mg Q24H PO 09/08/17 02:15 09/09/17 02:11 Sodium Chloride 1,000 ml @ 100 mls/hr Q10H IV 09/08/17 05:45 09/09/17 12:09 (Lopressor) 25 mg Q6HR PO 09/09/17 00:00 09/09/17 11:56 (Duoneb Neb) 1 ampule Q4HR NEB PRN NEB 09/09/17 08:30 09/09/17 09:28 Vital Signs / I&O Vital Signs Date Time Temp Pulse Resp B/P (MAP) Pulse Ox O2 Delivery O2 Flow Rate FiO2 09/09/17 12:00 98.6 126 22 102/58 (73) 96 09/09/17 12:00 142 09/09/17 09:34 96 09/09/17 08:30 Nasal Cannula 3.00 09/09/17 08:00 127 09/09/17 08:00 97.5 118 22 133/77 (95) 99 09/09/17 07:00 Room Air 09/09/17 04:12 98.0 85 17 88/61 (70) 94 09/09/17 04:00 96 09/09/17 03:48 Room Air 09/09/17 00:43 98.0 92 17 123/69 (87) 93 09/09/17 00:26 92 123/69 09/09/17 00:00 Room Air 09/09/17 00:00 104 09/08/17 21:05 98.0 114 17 111/71 (84) 93 09/08/17 20:00 107 09/08/17 20:00 Room Air 09/08/17 16:43 111 I/O 09/08/17 09/08/17 09/08/17 09/09/17 09/09/17 09/09/17 07:00 15:00 23:00 07:00 15:00 23:00 Intake Total 1250 ml 590 ml 500 ml Balance 1250 ml 590 ml 500 ml Intake Oral 240 ml IV Total 1250 ml 350 ml 500 ml # Voids 2 Physical Exam GENERAL: NAD, AAOx3 SKIN: Warm and dry. HEAD: Atraumatic. Normocephalic. EYES: Pupils equal and round. No scleral icterus. No injection or drainage. ENT: No nasal bleeding or discharge. Mucous membranes pink and moist. NECK: Trachea midline. No JVD. CARDIOVASCULAR: Irregularly irregular RESPIRATORY: No accessory muscle use. Clear to auscultation. Breath sounds equal bilaterally. GASTROINTESTINAL: Abdomen soft, non-tender, nondistended. Hepatic and splenic margins not palpable. MUSCULOSKELETAL: Extremities without clubbing, cyanosis, or edema. No obvious deformities. NEUROLOGICAL: Awake and alert. No obvious cranial nerve deficits. Motor grossly within normal limits. Five out of 5 muscle strength in the arms and legs. Normal speech. PSYCHIATRIC: Appropriate mood and affect; insight and judgment normal. Laboratory Laboratory Tests Test 09/09/17 13:27 Prothrombin Time 18.1 SEC Prothromb Time International Ratio 1.8 RATIO Activated Partial Thromboplast Time 55.1 SEC Assessment and Plan Problem List: (1) CAD (coronary artery disease) ICD Codes: I25.10 - Atherosclerotic heart disease of [place] coronary artery without angina pectoris (2) Atrial fibrillation with RVR ICD Codes: I48.91 - Unspecified atrial fibrillation Status: Acute (3) NSTEMI (non-ST elevated myocardial infarction) ICD Codes: I21.4 - Non-ST elevation (NSTEMI) myocardial infarction Status: Acute Assessment and Plan 1) Afib with RVR Increased Lopressor Will place on Cardizem 30mg QID to help control, wean off Cardizem drip 2) NSTEMI Possible Type 2 although known MVCAD Discussed ischemic evaluation, but does not want, con't medical management Previous cath with MVCAD, difficult intervention which was only POBA and residual disease Chest pain only with elevated heart rates Heparin drip 24 more hours 3) Coumadin for Afib Jose Sol DO Sep 09, 2017 16:42
[2017-09-09] MEDS ORDERED: SENNOSIDES 8.6 MG TAB PO ONE (17:15)
[2017-09-09] MEDS: DILTIAZEM HCL 30 MG TAB PO SCH (17:24)
--- NOTE | 2017-09-09 18:19 | ECHRPT ---
Indication: Heart failure, unspecified CONCLUSIONS The left ventricular systolic function is normal with an estimated ejection fraction of 55%. Wall thickness is normal. Normal left ventricular size. Mild mitral valve regurgitation. Aortic valve sclerosis is present. There is mild tricuspid valve regurgitation. The estimated pulmonary arterial pressure is 32 mmHg. BP: 115 / 83 HR: 122 Rhythm: Other MEASUREMENTS (Male / Female) Normal Values Technical Quality:Poor 2D ECHO LV Diastolic Diameter PLAX 4.7 cm 4.2 - 5.9 / 3.9 - 5.3 cm LV Systolic Diameter PLAX 3.3 cm IVS Diastolic Thickness 0.9 cm 0.6 - 1.0 / 0.6 - 0.9 cm LVPW Diastolic Thickness 0.9 cm 0.6 - 1.0 / 0.6 - 0.9 cm LV Relative Wall Thickness 0.4 LVOT Diameter 2.0 cm M-MODE Aortic Root Diameter MM 2.5 cm LA Systolic Diameter MM 4.5 cm LA Ao Ratio MM 1.8 AV Cusp Separation MM 1.6 cm DOPPLER AV Peak Velocity 195.7 cm/s AV Peak Gradient 15.3 mmHg AV Mean Gradient 9.0 mmHg AV Velocity Time Integral 33.6 cm LVOT Peak Velocity 91.3 cm/s LVOT Peak Gradient 3.3 mmHg AV Area Cont Eq pk 1.5 cm MR Peak Velocity 399.0 cm/s MR Peak Gradient 63.7 mmHg TR Peak Velocity 236.5 cm/s TR Peak Gradient 22.4 mmHg Right Atrial Pressure 10.0 mmHg Pulmonary Artery Systolic Pressu 32.4 mmHg Right Ventricular Systolic Press 32.4 mmHg PV Peak Velocity 122.0 cm/s PV Peak Gradient 6.0 mmHg FINDINGS LEFT VENTRICLE The left ventricular systolic function is normal with an estimated ejection fraction of 55%. Wall thickness is normal. Normal left ventricular size. RIGHT VENTRICLE Normal right ventricular size and systolic function. LEFT ATRIUM The left atrial size is normal. RIGHT ATRIUM The right atrial size is normal. ATRIAL SEPTUM Normal atrial septal thickness without atrial level shunting by limited color doppler interrogation. AORTA The aortic root and proximal ascending aorta are normal in size on limited imaging. MITRAL VALVE Mild mitral valve regurgitation. AORTIC VALVE Trileaflet aortic valve. No aortic valve stenosis or regurgitation. Aortic valve sclerosis is present. TRICUSPID VALVE There is mild tricuspid valve regurgitation. The estimated pulmonary arterial pressure is 32.4 mmHg. PULMONARY VALVE No pulmonary valve regurgitation or stenosis. VESSELS The inferior vena cava is normal in size. PERICARDIUM No pericardial effusion. Nate Adkins MD, FACC (Electronically Signed) Final Date:09 September 2017 18:18
[2017-09-09] MEDS: ATORVASTATIN 40 MG TAB PO SCH (21:04)
[2017-09-09] MEDS: ZOLPIDEM TARTRATE 10 MG TAB PO PRN (22:22)
[2017-09-10] VITALS (10 sets, daily range): BP systolic 86–113; BP diastolic 52–72; PULSE 86–133; RESP 18–22; TEMP 97.5–99; O2SAT 94–100
[2017-09-10] MEDS: LEVOFLOXACIN 500 MG TAB PO SCH (00:54)
[2017-09-10] MEDS: DILTIAZEM HCL 30 MG TAB PO SCH ×4 (00:54→17:24)
[2017-09-10] MEDS: METOPROLOL TARTRATE 25 MG TAB PO SCH ×4 (00:54→17:24)
[2017-09-10] MEDS: SODIUM CHLOR 0.9% 1000 ML INJ 1,000 ML IV SCH ×2 (06:21→15:35)
[2017-09-10] MEDS: RESP: ALBUTEROL 2.5 MG/IPRATROPIUM 0.5 MG NEB (PRN) NEB ×2 (07:12→16:26)
[2017-09-10] MEDS: SODIUM CHLORIDE 0.9% FLUSH 10 ML FLUSH IV FLUSH SCH ×2 (08:40→21:40)
[2017-09-10] MEDS: DOXAZOSIN MESYLATE 2 MG TAB PO SCH (08:41)
[2017-09-10] MEDS: AMIODARONE 200 MG TAB PO SCH ×2 (08:42→21:40)
[2017-09-10] MEDS: LISINOPRIL 20 MG TAB PO SCH (08:43)
[2017-09-10] MEDS: FAMOTIDINE 20 MG TAB PO SCH (08:44)
[2017-09-10] MEDS: HEPARIN-D5W 25,000 U/250 ML 250 ML IV PRN (14:16)
[2017-09-10] MEDS ORDERED: POLYETHYLENE GLYCOL 17 GM PKG PO ONE (16:15)
[2017-09-10] MEDS ORDERED: BISACODYL 10 MG SUPP RECTAL ONE (16:15)
--- NOTE | 2017-09-10 16:26 | HHI.PR ---
Subjective Remarks Nursing reports patient having very mild hypotension with a systolic in the low 90s but patient is asymptomatic. Patient is only on p.o. Cardizem, nurse did hold a.m. Lopressor due to that transient blood pressure. Heart rate however is still ranging greater than 100s up to 130s. Patient denies any chest pain or symptoms. Objective Vital Signs Date Time Temp Pulse Resp B/P (MAP) Pulse Ox O2 Delivery O2 Flow Rate FiO2 09/10/17 12:00 97.9 97 22 106/72 (83) 98 09/10/17 08:30 Nasal Cannula 3.00 21 09/10/17 08:00 98.2 110 20 91/54 (66) 98 09/10/17 07:39 131 09/10/17 07:12 97 21 09/10/17 04:00 97 09/10/17 04:00 97.9 86 20 86/59 (68) 100 09/10/17 02:00 88/60 (69) Automatic Cuff 09/10/17 00:00 108 09/10/17 00:00 99.0 118 18 113/52 (72) 94 09/09/17 22:30 126 112/68 (83) 09/09/17 20:45 98.3 98 18 98/57 (71) 97 09/09/17 20:15 Nasal Cannula 3.00 09/09/17 20:00 94 I/O 09/09/17 09/09/17 09/09/17 09/10/17 09/10/17 09/10/17 07:00 15:00 23:00 07:00 15:00 23:00 Intake Total 500 ml 480 ml 240 ml Output Total 125 ml 600 ml Balance 500 ml 355 ml -360 ml Intake Oral 480 ml 240 ml IV Total 500 ml Output Urine Total 125 ml 600 ml # Bowel Movements 0 Result Diagram: 09/08/17 0610 09/08/17 0610 Objective Remarks heart rate is tachycardic with an irregular rhythm Lungs are clear bilaterally, no murmurs A/P Assessment and Plan afib with rvr -Still not under control, on scheduled metoprolol and amiodarone, was transitioned from Cardizem drip to p.o. Cardizem yesterday, continue p.o. Cardizem, monitor blood pressure -Coumadin for stroke prevention possible nstemi -Medical management with aspirin and statin as well as heparin drip. Echo shows intact ejection fraction No clinical picture of pneumonia none at this time. Blood cultures are negative and pro calcitonin is negative, stop antibiotics COPD -Continue home albuterol/DuoNeb's home meds Constantin Fernandez MD Sep 10, 2017 16:26
--- NOTE | 2017-09-10 19:58 | PD.CARD.PN ---
Subjective Subjective Remarks Blood pressure low this am so meds not given then heart rate increased Patient asymptomatic, feels good, no chest pain Objective Medications Current Medications Medications (Trade) Dose Ordered Sig/Verónica Route Start Time Stop Time Status Last Admin (NS Flush) 2 ml UNSCH PRN IV FLUSH 09/07/17 20:15 (NS Flush) 2 ml BID IV FLUSH 09/07/17 21:00 09/10/17 08:40 (Narcan Inj) 0.4 mg UNSCH PRN IV PUSH 09/07/17 20:15 Heparin Sodium/ Dextrose 250 ml @ 8 mls/hr TITRATE PRN IV 09/08/17 02:15 09/10/17 14:16 (Cordarone) 100 mg BID PO 09/08/17 09:00 09/10/17 08:42 (Lipitor) 40 mg HS PO 09/08/17 21:00 09/09/17 21:04 (Cardura) 2 mg DAILY PO 09/08/17 09:00 09/09/17 10:05 (Prinivil) 20 mg DAILY PO 09/08/17 09:00 09/09/17 10:05 (Ambien) 10 mg HS PRN PO 09/08/17 02:15 09/09/17 22:22 (Pepcid) 20 mg DAILY PO 09/08/17 09:00 09/10/17 08:44 Sodium Chloride 1,000 ml @ 100 mls/hr Q10H IV 09/08/17 05:45 09/10/17 15:35 (Lopressor) 25 mg Q6HR PO 09/09/17 00:00 09/10/17 17:24 (Duoneb Neb) 1 ampule Q4HR NEB PRN NEB 09/09/17 08:30 09/10/17 16:26 (Cardizem) 30 mg Q6HR PO 09/09/17 18:00 09/10/17 17:24 (Miralax) 17 gm DAILY PO 09/11/17 09:00 Vital Signs / I&O Vital Signs Date Time Temp Pulse Resp B/P (MAP) Pulse Ox O2 Delivery O2 Flow Rate FiO2 09/10/17 16:29 97 09/10/17 16:00 97.5 106 22 103/70 (81) 98 09/10/17 12:00 97.9 97 22 106/72 (83) 98 09/10/17 08:30 Nasal Cannula 3.00 21 09/10/17 08:00 98.2 110 20 91/54 (66) 98 09/10/17 07:39 131 09/10/17 07:12 97 21 09/10/17 04:00 97 09/10/17 04:00 97.9 86 20 86/59 (68) 100 09/10/17 02:00 88/60 (69) Automatic Cuff 09/10/17 00:00 108 09/10/17 00:00 99.0 118 18 113/52 (72) 94 09/09/17 22:30 126 112/68 (83) 09/09/17 20:45 98.3 98 18 98/57 (71) 97 09/09/17 20:15 Nasal Cannula 3.00 09/09/17 20:00 94 I/O 09/09/17 09/09/17 09/09/17 09/10/17 09/10/17 09/10/17 07:00 15:00 23:00 07:00 15:00 23:00 Intake Total 500 ml 480 ml 240 ml 1470 ml Output Total 125 ml 600 ml 400 ml Balance 500 ml 355 ml -360 ml 1070 ml Intake Oral 480 ml 240 ml 480 ml IV Total 500 ml 990 ml Output Urine Total 125 ml 600 ml 400 ml # Bowel Movements 0 0 Physical Exam GENERAL: NAD, AAOx3 SKIN: Warm and dry. HEAD: Atraumatic. Normocephalic. EYES: Pupils equal and round. No scleral icterus. No injection or drainage. ENT: No nasal bleeding or discharge. Mucous membranes pink and moist. NECK: Trachea midline. No JVD. CARDIOVASCULAR: Irregularly irregular RESPIRATORY: No accessory muscle use. Clear to auscultation. Breath sounds equal bilaterally. GASTROINTESTINAL: Abdomen soft, non-tender, nondistended. Hepatic and splenic margins not palpable. MUSCULOSKELETAL: Extremities without clubbing, cyanosis, or edema. No obvious deformities. NEUROLOGICAL: Awake and alert. No obvious cranial nerve deficits. Motor grossly within normal limits. Five out of 5 muscle strength in the arms and legs. Normal speech. PSYCHIATRIC: Appropriate mood and affect; insight and judgment normal. Laboratory Laboratory Tests Test 09/10/17 07:30 Activated Partial Thromboplast Time 51.4 SEC Assessment and Plan Problem List: (1) CAD (coronary artery disease) ICD Codes: I25.10 - Atherosclerotic heart disease of [place] coronary artery without angina pectoris (2) Atrial fibrillation with RVR ICD Codes: I48.91 - Unspecified atrial fibrillation Status: Acute (3) NSTEMI (non-ST elevated myocardial infarction) ICD Codes: I21.4 - Non-ST elevation (NSTEMI) myocardial infarction Status: Acute Assessment and Plan 1) Afib with RVR Increased Lopressor Will place on Cardizem 30mg QID to help control Will plan to stop SHERIF-I for now so we can keep giving rate controlling agents , may need to increase Amiodarone 2) NSTEMI Possible Type 2 although known MVCAD Discussed ischemic evaluation, but does not want, con't medical management Previous cath with MVCAD, difficult intervention which was only POBA and residual disease Chest pain only with elevated heart rates Heparin drip off 3) Coumadin for Afib Jose Sol DO Sep 10, 2017 19:57
[2017-09-10] MEDS: ATORVASTATIN 40 MG TAB PO SCH (21:40)
[2017-09-10] MEDS: ZOLPIDEM TARTRATE 10 MG TAB PO PRN (21:40)
[2017-09-11] VITALS (10 sets, daily range): BP systolic 95–112; BP diastolic 56–65; PULSE 67–141; RESP 18–21; TEMP 97.2–98.5; O2SAT 95–98
[2017-09-11] MEDS: DILTIAZEM HCL 30 MG TAB PO SCH ×4 (00:40→17:56)
[2017-09-11] MEDS: METOPROLOL TARTRATE 25 MG TAB PO SCH ×4 (00:40→17:56)
[2017-09-11] MEDS: SODIUM CHLOR 0.9% 1000 ML INJ 1,000 ML IV SCH ×3 (03:45→21:42)
[2017-09-11] MEDS: RESP: ALBUTEROL 2.5 MG/IPRATROPIUM 0.5 MG NEB (PRN) NEB ×2 (07:34→15:34)
[2017-09-11] MEDS: POLYETHYLENE GLYCOL 17 GM PKG PO SCH (08:24)
[2017-09-11] MEDS: DOXAZOSIN MESYLATE 2 MG TAB PO SCH (08:26)
[2017-09-11] MEDS: AMIODARONE 200 MG TAB PO SCH ×2 (08:26→21:42)
[2017-09-11] MEDS: SODIUM CHLORIDE 0.9% FLUSH 10 ML FLUSH IV FLUSH SCH ×2 (08:27→21:00)
[2017-09-11] MEDS: FAMOTIDINE 20 MG TAB PO SCH (08:27)
--- NOTE | 2017-09-11 13:12 | PD.CARD.PN ---
Subjective Subjective Remarks Blood pressure still mildly low Patient asymptomatic, feels good, no chest pain Objective Medications Current Medications Medications (Trade) Dose Ordered Sig/Verónica Route Start Time Stop Time Status Last Admin (NS Flush) 2 ml UNSCH PRN IV FLUSH 09/07/17 20:15 (NS Flush) 2 ml BID IV FLUSH 09/07/17 21:00 09/11/17 08:27 (Narcan Inj) 0.4 mg UNSCH PRN IV PUSH 09/07/17 20:15 (Cordarone) 100 mg BID PO 09/08/17 09:00 09/11/17 08:26 (Lipitor) 40 mg HS PO 09/08/17 21:00 09/10/17 21:40 (Cardura) 2 mg DAILY PO 09/08/17 09:00 09/11/17 08:26 (Ambien) 10 mg HS PRN PO 09/08/17 02:15 09/10/17 21:40 (Pepcid) 20 mg DAILY PO 09/08/17 09:00 09/11/17 08:27 Sodium Chloride 1,000 ml @ 100 mls/hr Q10H IV 09/08/17 05:45 09/11/17 11:44 (Lopressor) 25 mg Q6HR PO 09/09/17 00:00 09/11/17 11:43 (Duoneb Neb) 1 ampule Q4HR NEB PRN NEB 09/09/17 08:30 09/11/17 07:34 (Cardizem) 30 mg Q6HR PO 09/09/17 18:00 09/11/17 11:43 (Miralax) 17 gm DAILY PO 09/11/17 09:00 09/11/17 08:24 Sodium Chloride 250 ml @ 250 mls/hr BOLUS ONCE IV 09/11/17 12:15 09/11/17 13:14 UNV Vital Signs / I&O Vital Signs Date Time Temp Pulse Resp B/P (MAP) Pulse Ox O2 Delivery O2 Flow Rate FiO2 09/11/17 12:19 98.0 102 21 95/63 (74) 96 09/11/17 08:00 125 09/11/17 08:00 97.6 98 18 104/65 (78) 96 09/11/17 07:36 96 Nasal Cannula 3.00 09/11/17 07:00 Nasal Cannula 3.00 09/11/17 04:00 84 09/11/17 04:00 98.4 118 20 98/58 (71) 98 09/11/17 00:00 109 09/11/17 00:00 97.2 106 20 107/65 (79) 95 09/10/17 20:30 Nasal Cannula 3.00 21 09/10/17 20:00 98.0 102 20 107/70 (82) 96 09/10/17 20:00 122 09/10/17 16:29 97 09/10/17 16:00 97.5 106 22 103/70 (81) 98 09/10/17 16:00 125 I/O 09/10/17 09/10/17 09/10/17 09/11/17 09/11/17 09/11/17 07:00 15:00 23:00 07:00 15:00 23:00 Intake Total 240 ml 1470 ml Output Total 600 ml 400 ml 100 ml Balance -360 ml 1070 ml -100 ml Intake Oral 240 ml 480 ml IV Total 990 ml Output Urine Total 600 ml 400 ml 100 ml # Voids 2 # Bowel Movements 0 Physical Exam GENERAL: NAD, AAOx3 SKIN: Warm and dry. HEAD: Atraumatic. Normocephalic. EYES: Pupils equal and round. No scleral icterus. No injection or drainage. ENT: No nasal bleeding or discharge. Mucous membranes pink and moist. NECK: Trachea midline. No JVD. CARDIOVASCULAR: Irregularly irregular RESPIRATORY: No accessory muscle use. Clear to auscultation. Breath sounds equal bilaterally. GASTROINTESTINAL: Abdomen soft, non-tender, nondistended. Hepatic and splenic margins not palpable. MUSCULOSKELETAL: Extremities without clubbing, cyanosis, or edema. No obvious deformities. NEUROLOGICAL: Awake and alert. No obvious cranial nerve deficits. Motor grossly within normal limits. Five out of 5 muscle strength in the arms and legs. Normal speech. PSYCHIATRIC: Appropriate mood and affect; insight and judgment normal. Assessment and Plan Problem List: (1) CAD (coronary artery disease) ICD Codes: I25.10 - Atherosclerotic heart disease of [place] coronary artery without angina pectoris (2) Atrial fibrillation with RVR ICD Codes: I48.91 - Unspecified atrial fibrillation Status: Acute (3) NSTEMI (non-ST elevated myocardial infarction) ICD Codes: I21.4 - Non-ST elevation (NSTEMI) myocardial infarction Status: Acute Assessment and Plan 1) Afib with RVR Increased Lopressor Will increase Cardizem SHERIF-I stopped, will plan to stop Cardura, may need to increase Amiodarone 2) NSTEMI Possible Type 2 although known MVCAD Discussed ischemic evaluation, but does not want, con't medical management Previous cath with MVCAD, difficult intervention which was only POBA and residual disease Chest pain only with elevated heart rates Heparin drip off 3) Coumadin for Afib 4) If heart rates stable later tonight or tomorrow morning, may be discharged to follow up with Jose Oneil DO Sep 11, 2017 13:12
[2017-09-11] MEDS ORDERED: SODIUM CHLOR 0.9% 250 ML INJ 250 ML IV ONE (13:15)
[2017-09-11] MEDS ORDERED: DILTIAZEM HCL 30 MG TAB PO ONE (14:00)
--- NOTE | 2017-09-11 19:12 | HHI.PR ---
Subjective Remarks Nursing reports patient having very mild hypotension with a systolic in the low 90s but patient is asymptomatic. Patient denies any lightheadedness or chest pain. Heart rate is now finally touching the 90s. Objective Vital Signs Date Time Temp Pulse Resp B/P (MAP) Pulse Ox O2 Delivery O2 Flow Rate FiO2 09/11/17 16:00 141 09/11/17 16:00 98.2 67 18 112/63 (79) 95 09/11/17 15:34 97 21 09/11/17 12:19 98.0 102 21 95/63 (74) 96 09/11/17 12:00 101 09/11/17 08:00 125 09/11/17 08:00 97.6 98 18 104/65 (78) 96 09/11/17 07:36 96 Nasal Cannula 3.00 09/11/17 07:00 Nasal Cannula 3.00 09/11/17 04:00 84 09/11/17 04:00 98.4 118 20 98/58 (71) 98 09/11/17 00:00 109 09/11/17 00:00 97.2 106 20 107/65 (79) 95 09/10/17 20:30 Nasal Cannula 3.00 21 09/10/17 20:00 98.0 102 20 107/70 (82) 96 09/10/17 20:00 122 I/O 09/10/17 09/10/17 09/10/17 09/11/17 09/11/17 09/11/17 07:00 15:00 23:00 07:00 15:00 23:00 Intake Total 240 ml 1470 ml 700 ml 2580 ml Output Total 600 ml 400 ml 100 ml 800 ml Balance -360 ml 1070 ml -100 ml 700 ml 1780 ml Intake Oral 240 ml 480 ml 480 ml IV Total 990 ml 700 ml 2100 ml Output Urine Total 600 ml 400 ml 100 ml 800 ml # Voids 2 # Bowel Movements 0 Result Diagram: 09/08/17 0610 09/08/17 06 Objective Remarks heart rate is tachycardic with an irregular rhythm Lungs are clear bilaterally, no murmurs Sleeping, easily awoken A/P Assessment and Plan afib with rvr - Continue po metoprolol, Cardizem, amiodarone, cardiology managing doses -Coumadin for stroke prevention possible nstemi -Medical management with aspirin and statin as well as heparin drip. Echo shows intact ejection fraction COPD -Continue home albuterol/DuoNeb's home meds Discharge Planning Anticipate possible discharge tomorrow heart rate stable per cardiology clearance Constantin Fernandez MD Sep 11, 2017 19:12
[2017-09-11] MEDS: ATORVASTATIN 40 MG TAB PO SCH (21:41)
[2017-09-11] MEDS: ZOLPIDEM TARTRATE 10 MG TAB PO PRN (21:41)
[2017-09-12] VITALS (11 sets, daily range): BP systolic 91–134; BP diastolic 54–80; PULSE 79–122; RESP 16–20; TEMP 97.2–98.6; O2SAT 93–99
[2017-09-12] MEDS: METOPROLOL TARTRATE 25 MG TAB PO SCH ×5 (00:29→23:04)
[2017-09-12] MEDS: DILTIAZEM HCL 30 MG TAB PO SCH ×5 (00:29→23:04)
[2017-09-12] MEDS: RESP: ALBUTEROL 2.5 MG/IPRATROPIUM 0.5 MG NEB (PRN) NEB ×4 (04:17→16:57)
[2017-09-12] MEDS: FAMOTIDINE 20 MG TAB PO SCH (08:49)
[2017-09-12] MEDS: SODIUM CHLORIDE 0.9% FLUSH 10 ML FLUSH IV FLUSH SCH ×2 (08:49→20:28)
[2017-09-12] MEDS: POLYETHYLENE GLYCOL 17 GM PKG PO SCH (08:49)
[2017-09-12] MEDS: AMIODARONE 200 MG TAB PO SCH ×2 (08:50→20:27)
[2017-09-12] MEDS: SODIUM CHLOR 0.9% 1000 ML INJ 1,000 ML IV SCH (08:50)
--- NOTE | 2017-09-12 11:47 | PD.CARD.PN ---
Subjective Subjective Remarks Feels "great." Denies CP, dyspnea, palpitations, dizziness. Objective Medications Item Value Date Time Diltiazem HCl 60 mg 09/11/17 1800 (Cardizem) Q6HR/PO 09/12/17 0609 Metoprolol 25 mg 09/09/17 0000 Tartrate Q6HR/PO 09/12/17 0609 (Lopressor) Amiodarone HCl 100 mg 09/08/17 0900 (Cordarone) BID/PO 09/12/17 0850 Atorvastatin 40 mg 09/08/17 2100 Calcium HS/PO 09/11/17 2141 (Lipitor) Current Medications Medications (Trade) Dose Ordered Sig/Verónica Route Start Time Stop Time Status Last Admin (NS Flush) 2 ml UNSCH PRN IV FLUSH 09/07/17 20:15 (NS Flush) 2 ml BID IV FLUSH 09/07/17 21:00 09/11/17 08:27 (Narcan Inj) 0.4 mg UNSCH PRN IV PUSH 09/07/17 20:15 (Cordarone) 100 mg BID PO 09/08/17 09:00 09/12/17 08:50 (Lipitor) 40 mg HS PO 09/08/17 21:00 09/11/17 21:41 (Ambien) 10 mg HS PRN PO 09/08/17 02:15 09/11/17 21:41 (Pepcid) 20 mg DAILY PO 09/08/17 09:00 09/12/17 08:49 Sodium Chloride 1,000 ml @ 100 mls/hr Q10H IV 09/08/17 05:45 09/12/17 08:50 (Lopressor) 25 mg Q6HR PO 09/09/17 00:00 09/12/17 06:09 (Duoneb Neb) 1 ampule Q4HR NEB PRN NEB 09/09/17 08:30 09/12/17 08:23 (Miralax) 17 gm DAILY PO 09/11/17 09:00 09/12/17 08:49 (Cardizem) 60 mg Q6HR PO 09/11/17 18:00 09/12/17 06:09 Vital Signs / I&O Vital Signs Date Time Temp Pulse Resp B/P (MAP) Pulse Ox O2 Delivery O2 Flow Rate FiO2 09/12/17 10:41 97 Room Air 3/17/18 08:00 97.5 110 20 114/80 (91) 97 09/12/17 04:18 96 Nasal Cannula 3.00 09/12/17 04:18 98.6 104 18 124/76 (92) 97 09/12/17 04:00 122 09/12/17 00:00 92 09/12/17 00:00 97.6 109 18 99/62 (74) 93 09/11/17 20:30 Room Air 21 09/11/17 20:30 94 09/11/17 20:00 98.5 101 20 100/56 (71) 96 09/11/17 16:00 141 09/11/17 16:00 98.2 67 18 112/63 (79) 95 09/11/17 15:34 97 21 09/11/17 12:19 98.0 102 21 95/63 (74) 96 09/11/17 12:00 101 I/O 09/11/17 09/11/17 09/11/17 09/12/17 09/12/17 09/12/17 07:00 15:00 23:00 07:00 15:00 23:00 Intake Total 700 ml 2580 ml 280 ml 1000 ml Output Total 100 ml 800 ml 200 ml Balance -100 ml 700 ml 1780 ml 80 ml 1000 ml Intake Oral 480 ml 280 ml IV Total 700 ml 2100 ml 1000 ml Output Urine Total 100 ml 800 ml 200 ml # Voids 2 Physical Exam GENERAL: Well developed, well nourished. No acute distress. HEENT: Jugular venous pressure is normal. CHEST: Lungs clear to auscultation bilaterally. Unlabored respiratory effort. CARDIAC: Tachycardic irregular rhythm without S3, S4, or murmur. ABDOMEN: Soft, nontender, no hepatosplenomegaly. Bowel sounds present. EXTREMITIES: No clubbing, cyanosis, or edema. Assessment and Plan Problem List: (1) CAD (coronary artery disease) ICD Codes: I25.10 - Atherosclerotic heart disease of [place] coronary artery without angina pectoris Status: Chronic Plan: Stable. No angina. To continue conservative medical management. Rec add baby aspirin. (2) Atrial fibrillation with RVR ICD Codes: I48.91 - Unspecified atrial fibrillation Status: Acute Plan: Still with mildly elevated HR's. Patient completely asymptomatic. BP's somewhat low to increase metoprolol, diltiazem. REC add digoxin, IV this morning and this afternoon if HR's OK later today, can discharge home on current medications plus digoxin 0.125 mg qd resume warfarin Code Status full code Discussed Condition With patient Problem Qualifiers (1) CAD (coronary artery disease): Qualified Codes: I25.10 - Atherosclerotic heart disease of [place] coronary artery without angina pectoris Calderon Cheatham MD Sep 12, 2017 11:47
[2017-09-12] MEDS ORDERED: DIGOXIN 0.5 MG/2 ML VIAL IV PUSH ONE ×2 (12:00→17:00)
[2017-09-12] MEDS ORDERED: WARFARIN SOD 2.5 MG TAB PO SCH ×2 (16:00→17:30)
--- NOTE | 2017-09-12 17:07 | HHI.PR ---
Subjective Remarks Heart rate still slightly elevated although improving. Denies cp, sob states feels very well Objective Vitals Vital Signs Date Time Temp Pulse Resp B/P (MAP) Pulse Ox O2 Delivery O2 Flow Rate FiO2 09/12/17 16:29 110 09/12/17 12:57 114 09/12/17 12:00 97.2 108 20 129/80 (96) 98 09/12/17 10:41 97 Room Air 09/12/17 08:00 110 09/12/17 08:00 97.5 110 20 114/80 (91) 97 09/12/17 04:18 96 Nasal Cannula 3.00 09/12/17 04:18 98.6 104 18 124/76 (92) 97 09/12/17 04:00 122 09/12/17 00:00 92 09/12/17 00:00 97.6 109 18 99/62 (74) 93 09/11/17 20:30 Room Air 21 09/11/17 20:30 94 09/11/17 20:00 98.5 101 20 100/56 (71) 96 I/O 09/11/17 09/11/17 09/11/17 09/12/17 09/12/17 09/12/17 07:00 15:00 23:00 07:00 15:00 23:00 Intake Total 700 ml 2580 ml 280 ml 1000 ml Output Total 100 ml 800 ml 200 ml Balance -100 ml 700 ml 1780 ml 80 ml 1000 ml Intake Oral 480 ml 280 ml IV Total 700 ml 2100 ml 1000 ml Output Urine Total 100 ml 800 ml 200 ml # Voids 2 Result Diagram: 09/08/17 0610 09/08/17 0610 Imaging Last Impressions Liver Ultrasound 09/08/17 0000 Signed Impressions: Service Date/Time: Friday, September 08, 2017 07:51 - CONCLUSION: 1. Majority of the lesions noted on recent CT exam correspond to hepatic cysts on ultrasound. However, several lesions are too small to fully characterize. Porter Huerta MD Chest CT 09/08/17 0000 Signed Impressions: Service Date/Time: Friday, September 08, 2017 02:24 - CONCLUSION: 1. No acute intrathoracic abnormality. 2. Severe coronary artery atherosclerotic calcifications. 3. Multiple low-density lesions involving the liver which are poorly characterized on this unenhanced study. Ultrasound of the liver could be performed to further evaluate. 4. Hiatal hernia. Molina Viramontes Jr., MD Chest X-Ray 09/07/17 1837 Signed Impressions: Service Date/Time: Thursday, September 07, 2017 18:43 - CONCLUSION: No evidence of acute cardiopulmonary disease. Juan Francis MD Objective Remarks AAOx3 S1S2 irregularly irregular, tachycardic Decreased air entry BL but clear no edema in lower extremities Medications and IVs Current Medications Medications (Trade) Dose Ordered Sig/Verónica Route Start Time Stop Time Status Last Admin (NS Flush) 2 ml UNSCH PRN IV FLUSH 09/07/17 20:15 (NS Flush) 2 ml BID IV FLUSH 09/07/17 21:00 09/11/17 08:27 (Narcan Inj) 0.4 mg UNSCH PRN IV PUSH 09/07/17 20:15 (Cordarone) 100 mg BID PO 09/08/17 09:00 09/12/17 08:50 (Lipitor) 40 mg HS PO 09/08/17 21:00 09/11/17 21:41 (Ambien) 10 mg HS PRN PO 09/08/17 02:15 09/11/17 21:41 (Pepcid) 20 mg DAILY PO 09/08/17 09:00 09/12/17 08:49 Sodium Chloride 1,000 ml @ 100 mls/hr Q10H IV 09/08/17 05:45 09/12/17 08:50 (Lopressor) 25 mg Q6HR PO 09/09/17 00:00 09/12/17 12:47 (Duoneb Neb) 1 ampule Q4HR NEB PRN NEB 09/09/17 08:30 09/12/17 16:57 (Miralax) 17 gm DAILY PO 09/11/17 09:00 09/12/17 08:49 (Cardizem) 60 mg Q6HR PO 09/11/17 18:00 09/12/17 12:47 (Coumadin) 2.5 mg DAILY@16 PO 09/12/17 16:00 A/P Problem List: (1) CAD (coronary artery disease) ICD Code: I25.10 - Atherosclerotic heart disease of [place] coronary artery without angina pectoris Status: Chronic Plan: Stable. No angina at this moment. Continue with conservative medical management. Add baby aspirin. (2) Atrial fibrillation with RVR ICD Code: I48.91 - Unspecified atrial fibrillation Status: Acute Plan: His review card runner. The patient's heart rate still jumping from 106-119. Continue metoprolol and diltiazem. Cardiology added digoxin IV this morning. We will keep the patient and continue to monitor on telemetry. If stable will discharge on oral digoxin 0.125 mg daily. Resume warfarin. (3) NSTEMI (non-ST elevated myocardial infarction) ICD Code: I21.4 - Non-ST elevation (NSTEMI) myocardial infarction Status: Acute Plan: Possible type II although known MVCAD. Radiology was consulted. Patient refused ischemic evaluation. Continue medical management. Patient initially started on heparin drip which was discontinued. (4) COPD (chronic obstructive pulmonary disease) ICD Code: J44.9 - Chronic obstructive pulmonary disease, unspecified Plan: Seem to be stable and not an exacerbation. However given the patient has some mild diffuse expiratory wheezing I will place on scheduled DuoNeb's while the patient is hospitalized. Assessment and Plan DVT prophylaxis: Resume warfarin. Discharge Planning Discharge in a.m. if heart rate controlled. Problem Qualifiers (1) CAD (coronary artery disease): Qualified Codes: I25.10 - Atherosclerotic heart disease of [place] coronary artery without angina pectoris (2) COPD (chronic obstructive pulmonary disease): Qualified Codes: J44.1 - Chronic obstructive pulmonary disease with (acute) exacerbation Nahum Riggs MD Sep 12, 2017 17:07
[2017-09-12] MEDS: ASPIRIN EC 81 MG TABEC PO SCH (17:30)
[2017-09-12] MEDS ORDERED: ALBUTEROL SULFATE 90 MCG/ACT HFA 8 GM INHALER INH PRN (17:30)
[2017-09-12] MEDS ORDERED: ASPIRIN EC 81 MG TABEC PO ONE (17:30)
[2017-09-12] MEDS: ATORVASTATIN 40 MG TAB PO SCH (20:28)
[2017-09-12] MEDS: RESP: IPRATROPIUM 0.5 MG/2.5 ML NEB NEB SCH (21:37)
[2017-09-12] MEDS: ZOLPIDEM TARTRATE 10 MG TAB PO PRN (23:05)
[2017-09-13] VITALS (7 sets, daily range): BP systolic 84–139; BP diastolic 55–89; PULSE 89–107; RESP 16–22; TEMP 97.4–98.5; O2SAT 95–98
[2017-09-13] MEDS: DILTIAZEM HCL 30 MG TAB PO SCH ×3 (05:54→13:00)
[2017-09-13] MEDS: METOPROLOL TARTRATE 25 MG TAB PO SCH ×3 (05:54→13:00)
[2017-09-13] MEDS: SODIUM CHLORIDE 0.9% FLUSH 10 ML FLUSH IV FLUSH SCH (08:40)
[2017-09-13] MEDS: AMIODARONE 200 MG TAB PO SCH (08:40)
[2017-09-13] MEDS: FAMOTIDINE 20 MG TAB PO SCH (08:41)
[2017-09-13] MEDS: POLYETHYLENE GLYCOL 17 GM PKG PO SCH (08:41)
[2017-09-13] MEDS: ASPIRIN EC 81 MG TABEC PO SCH (08:41)
[2017-09-13] MEDS: RESP: IPRATROPIUM 0.5 MG/2.5 ML NEB NEB SCH ×2 (08:47→15:04)
[2017-09-13] MEDS ORDERED: METO25TA3 PO (09:39)
[2017-09-13] MEDS ORDERED: DILT31TA PO (09:39)
[2017-09-13] MEDS ORDERED: DIGO0.12 PO (09:39)
[2017-09-13] MEDS ORDERED: ECASA81 PO (09:39)
--- NOTE | 2017-09-13 09:41 | HHI.DCPOC ---
Discharge Care Plan Diagnosis: (1) Atrial fibrillation with RVR (2) NSTEMI (non-ST elevated myocardial infarction) (3) CAD (coronary artery disease) (4) COPD (chronic obstructive pulmonary disease) Goals to Promote Your Health * To prevent worsening of your condition and complications * To maintain your health at the optimal level Directions to Meet Your Goals Take your medications as prescribed Follow your dietary instruction Follow activity as directed Keep your appointments as scheduled Take your immunizations and boosters as scheduled If your symptoms worsen call your PCP, if no PCP go to Urgent Care Center or Emergency Room Smoking is Dangerous to Your Health. Avoid second hand smoke Call the 24-hour hour crisis hotline for domestic abuse at Nahum Riggs MD Sep 13, 2017 09:41
--- NOTE | 2017-09-13 11:41 | PD.CARD.PN ---
Subjective Subjective Remarks Denies CP, dyspnea, palpitations, dizziness. Objective Medications Item Value Date Time Aspirin 81 mg 09/12/17 1730 (Ecotrin Ec) DAILY/PO 09/13/17 0841 Warfarin Sodium 2.5 mg 09/12/17 1600 (Coumadin) DAILY@16/PO 09/12/17 1745 Diltiazem HCl 60 mg 09/11/17 1800 (Cardizem) Q6HR/PO 09/13/17 0554 Metoprolol 25 mg 09/09/17 0000 Tartrate Q6HR/PO 09/13/17 0554 (Lopressor) Atorvastatin 40 mg 09/08/17 2100 Calcium HS/PO 09/12/172027 (Lipitor) Amiodarone HCl 100 mg 09/08/17 0900 (Cordarone) BID/PO 09/13/17 0840 Current Medications Medications (Trade) Dose Ordered Sig/Verónica Route Start Time Stop Time Status Last Admin (NS Flush) 2 ml UNSCH PRN IV FLUSH 09/07/17 20:15 (NS Flush) 2 ml BID IV FLUSH 09/07/17 21:00 09/13/17 08:40 (Narcan Inj) 0.4 mg UNSCH PRN IV PUSH 09/07/17 20:15 (Cordarone) 100 mg BID PO 09/08/17 09:00 09/13/17 08:40 (Lipitor) 40 mg HS PO 09/08/17 21:00 09/12/17 20:28 (Ambien) 10 mg HS PRN PO 09/08/17 02:15 09/12/17 23:05 (Pepcid) 20 mg DAILY PO 09/08/17 09:00 09/13/17 08:41 (Lopressor) 25 mg Q6HR PO 09/09/17 00:00 09/13/17 05:54 (Duoneb Neb) 1 ampule Q4HR NEB PRN NEB 09/09/17 08:30 09/12/17 16:57 (Miralax) 17 gm DAILY PO 09/11/17 09:00 09/13/17 08:41 (Cardizem) 60 mg Q6HR PO 09/11/17 18:00 09/13/17 05:54 (Coumadin) 2.5 mg DAILY@16 PO 09/12/17 16:00 09/12/17 17:45 (Proair Hfa Inh) 1 puff Q4H PRN INH 09/12/17 17:30 (Atrovent Neb) 0.5 mg Q6HR NEB NEB 09/12/17 17:30 09/13/17 08:47 (Ecotrin Ec) 81 mg DAILY PO 09/12/17 17:30 09/13/17 08:41 Vital Signs / I&O Vital Signs Date Time Temp Pulse Resp B/P (MAP) Pulse Ox O2 Delivery O2 Flow Rate FiO2 09/13/17 10:47 98 Nasal Cannula 2.00 09/13/17 08:00 97.4 96 22 136/78 (97) 98 09/13/17 04:00 97.8 93 18 115/63 (80) 97 09/13/17 04:00 Nasal Cannula 2.00 09/13/17 03:52 102 09/13/17 03:32 97 Nasal Cannula 2.00 09/13/17 00:00 98.5 99 16 106/66 (79) 95 09/13/17 00:00 Nasal Cannula 2.00 09/12/17 23:57 115 09/12/17 21:37 96 Nasal Cannula 2.00 09/12/17 20:00 Nasal Cannula 2.00 09/12/17 20:00 79 09/12/17 20:00 98.0 95 19 91/54 (66) 97 09/12/17 16:29 110 09/12/17 16:00 97.9 98 20 134/69 (90) 99 09/12/17 12:57 114 09/12/17 12:00 97.2 108 20 129/80 (96) 98 I/O 09/12/17 09/12/17 09/12/17 09/13/17 09/13/17 09/13/17 07:00 15:00 23:00 07:00 15:00 23:00 Intake Total 280 ml 1000 ml 1480 ml Output Total 200 ml 450 ml Balance 80 ml 1000 ml 1480 ml -450 ml Intake Oral 280 ml 480 ml IV Total 1000 ml 1000 ml Output Urine Total 200 ml 450 ml # Voids 4 # Bowel Movements 1 0 Physical Exam GENERAL: Well developed, well nourished. No acute distress. HEENT: Jugular venous pressure is normal. CHEST: Lungs clear to auscultation bilaterally. Unlabored respiratory effort. CARDIAC: Irregular rhythm without S3, S4, or murmur. ABDOMEN: Soft, nontender, no hepatosplenomegaly. Bowel sounds present. EXTREMITIES: No clubbing, cyanosis, or edema. Assessment and Plan Problem List: (1) CAD (coronary artery disease) ICD Codes: I25.10 - Atherosclerotic heart disease of [place] coronary artery without angina pectoris Status: Chronic Plan: Stable. No angina. To continue conservative medical management. (2) Atrial fibrillation with RVR ICD Codes: I48.91 - Unspecified atrial fibrillation Status: Acute Plan: HR's better, mostly controlled. Patient completely asymptomatic. BP's overall somewhat low to increase metoprolol, diltiazem. REC OK to discharge home today from my standpoint; would add digoxin 0.125 mg qd to current medications Code Status full code Discussed Condition With patient Problem Qualifiers (1) CAD (coronary artery disease): Qualified Codes: I25.10 - Atherosclerotic heart disease of [place] coronary artery without angina pectoris Calderon Cheatham MD Sep 13, 2017 11:41
[2017-09-13] MEDS: DIGOXIN 0.125 MG TAB PO SCH ×2 (11:45→13:00)
== END 2017-09-13 16:07 | disposition home or self-care (01) | DRG 282 ==
LOC: NEPC 18:15 → NEDA 20:09 → NEDH 09-08 00:19 → N04B 09-08 15:37
PROVIDERS: ADMIT Hospitalist; ATTEND Hospitalist
DX: I48.0 Paroxysmal atrial fibrillation (principal); I21.4 Non-ST elevation (NSTEMI) myocardial infarction; I95.9 Hypotension, unspecified; J44.9 Chronic obstructive pulmonary disease, unspecified; N18.3 Chronic kidney disease, stage 3 (moderate); I42.9 Cardiomyopathy, unspecified; R00.0 Tachycardia, unspecified; I12.9 Hypertensive chronic kidney disease with stage 1 through stage 4 chronic kidney disease, or unspecified chronic kidney disease; I25.119 Atherosclerotic heart disease of native coronary artery with unspecified angina pectoris; I25.2 Old myocardial infarction; Z23 Encounter for immunization; Z79.01 Long term (current) use of anticoagulants; Z72.0 Tobacco use; Z85.820 Personal history of malignant melanoma of skin; Z92.3 Personal history of irradiation; Z85.46 Personal history of malignant neoplasm of prostate
CPT/HCPCS: 71045; 71250; 76705; 80048; 80053; 81001; 82550; 83690; 83735; 83880; 84145; 84443; 84484; 85025; 85610; 85730; 87040; 90732; 93005; 93306; 94618; 94640; 94664; 96365; 96375; J1160; J1644; J7030; J7040; J7050; J7644